=== PATIENT | female | born 1960 | race Caucasian/White ===

== ENCOUNTER → 2016-10-24 | Outpatient (CLI) | payer OTHER ==
--- NOTE | 2016-10-24 12:43 | MAMMOGRAPHY REPORT ---
BILATERAL DIGITAL SCREENING MAMMOGRAM TOMOSYNTHESIS WITH CAD: 10/24/2016 CLINICAL HISTORY: Routine screening. TECHNIQUE: Breast tomosynthesis in addition to standard 2D mammography was performed. Current study was also evaluated with a Computer Aided Detection (CAD) system. COMPARISON: Comparison is made to exams dated: 10/23/2015 mammogram, 10/19/2014 mammogram, 10/17/2013 jimmie mogram, 10/13/2012 mammogram, 10/13/2011 mammogram, and 10/11/2010 mammogram - [facility] . BREAST COMPOSITION: The tissue of both breasts is heterogeneously dense, which may obscure small mas ses. FINDINGS: No suspicious masses, calcifications, or areas of architectural distortion are noted in ei ther breast. There has been no significant interval change compared to prior exams. Scattered bilater al benign-appearing calcifications are not significantly changed. IMPRESSION: ACR BI-RADS CATEGORY 2: BENIGN There is no mammographic evidence of malignancy. A 1 year screening mammogram is recommended. The pa tient will receive written notification of the results. Approximately 10% of breast cancers are not detected with mammography. A negative mammographic report should not delay biopsy if a clinically suggestive mass is present. Yissel Rodrigues M.D. ah/:10/24/2016 09:05:01 Jaw Skinner: José PEACOCK(R)(M), [facility] letter sent: Normal 1/2 BI-RADS Code: ACR BI-RADS Category 2: Benign
== END | disposition home or self-care (01) ==
LOC: C.MAMM 08:09
PROVIDERS: ATTEND Internal Medicine
DX: Z12.31 Encounter for screening mammogram for malignant neoplasm of breast (principal)

== ENCOUNTER 2017-11-12 11:17 | Emergency (ER) | payer OTHER ==
[~2017-11-12] VITALS: Ht 157.5 cm; Wt 62.3 kg
[2017-11-12 11:20] VITALS: Ht 157.5 cm; Wt 62.3 kg
[2017-11-12] MEDS ORDERED: METO-217 PO (12:03)
[2017-11-12] MEDS ORDERED: ATOR10TA82 PO (12:03)
[2017-11-12] MEDS ORDERED: SERT25TA PO (12:03)
[2017-11-12 12:33] VITALS: TEMP 36.6; O2SAT 97
--- NOTE | 2017-11-12 12:34 | DIAGNOSTIC IMAGING REPORT ---
CHEST ONE VIEW PORTABLE CLINICAL HISTORY: cp dyspnea COMPARISON STUDY: No previous studies for comparison. FINDINGS: The bones soft tissues and hemidiaphragms are normal. The cardiomediastinal silhouette is normal. The lungs are clear. The pulmonary vasculature is normal. IMPRESSION: Negative chest. The above report was generated using voice recognition software. It may contain grammatical, syntax or spelling errors. Electronically signed by: Swapnil Blake M.D. 11/12/2017 12:33 PM Dictated Date/Time: 11/12/2017 12:33 PM
[2017-11-12 12:37] LABS: MEAN CELL VOLUME 88.5 fL (80-100); MEAN CORPUSCULAR HEMOGLOBIN 30.1 pg (25-34); MEAN PLATELET VOLUME 10.2 fL (7.4-10.4); PLATELET COUNT 329 K/uL (130-400); RED CELL DISTRIBUTION WIDTH CV 13.4 % (11.5-14.5); RED CELL DISTRIBUTION WIDTH SD 43.3 fL (36.4-46.3)
[2017-11-12 12:42] LABS: PTT PATIENT 28.9 SECONDS (21.0-31.0)
[2017-11-12 13:04] LABS: ALBUMIN 4.2 gm/dl (3.4-5.0); ALKALINE PHOSPHATASE 104 U/L (45-117); ALT/SGPT 43 U/L (12-78); AST/SGOT 22 U/L (15-37); BLOOD UREA NITROGEN 12 mg/dl (7-18); CALCIUM 9.2 mg/dl (8.5-10.1); CARBON DIOXIDE 24 mmol/L (21-32); CKMB < 1.0 ng/ml (0.5-3.6); CREATININE 0.72 mg/dl (0.60-1.20); GLUCOSE 97 mg/dl (70-99); SODIUM 137 mmol/L (136-145); TOTAL PROTEIN 8.1 gm/dl (6.4-8.2)
--- NOTE | 2017-11-12 14:05 | EMERGENCY ROOM VISIT NOTE ---
History Report prepared by Deepak: Maria Alejandra Smith Under the Supervision of: Dr. Bandar Ibrahim D.O. First contact with patient: 12:31 Chief Complaint: CHEST PAIN Stated Complaint: CHEST PAIN, HEAVINESS Nursing Triage Summary: see triage note History of Present Illness The patient is a 57 year old female who presents to the Emergency Room with complaints of persistent chest pain starting yesterday. She was experiencing some heartburn yesterday morning. Last night, she woke up around 2300 with worsened chest pain which lasted for 1 hour. This morning, she woke up with persistent heartburn and a heaviness in her chest. She currently rates her discomfort as a 5/10 in severity. Her pain does not worsen with exertion. Her left arm feels numb and heavy. She called her PCP and was sent to the ED. She has never had these symptoms before. The patient thinks her symptoms are due to anxiety from starting a stressful new job. She denies any SOB, fatigue, or weakness. She has a history of hypertension and high cholesterol. She does not smoke, but does use alcohol socially. Her father had a mitral valve replacement last year, but did not have any heart problems at a younger age. Source of History: patient Onset: yesterday Position: chest Symptom Intensity: 5/10 Quality: burning, other (heavy) Timing: other (persistent) Associated Symptoms: No SOB, No fatigue, No weakness Note: Pt reports left arm numbness and heaviness. Review of Systems See HPI for pertinent positives & negatives. A total of 10 systems reviewed and were otherwise negative. Past Medical & Surgical Medical Problems: (1) High cholesterol (2) Hypertension Family History Hypertension MS (multiple sclerosis) Social History Smoking Status: Never Smoker Alcohol Use: occasionally Marital Status: Housing Status: lives with family Occupation Status: employed Current/Historical Medications Scheduled Atorvastatin (Lipitor), 10 MG PO DAILY Metoprolol Succinate (Toprol Xl), 50 MG PO DAILY Sertraline (Zoloft), 25 MG PO DAILY Allergies Coded Allergies: Doxycycline (Unverified Allergy, Unknown, NAUSEA, 11/12/17) Physical Exam Vital Signs Date Time Temp Pulse Resp B/P (MAP) Pulse Ox O2 Delivery O2 Flow Rate FiO2 11/12/17 13:16 135/85 11/12/17 13:06 71 14 97 11/12/17 13:01 149/94 11/12/17 12:51 68 7 98 11/12/17 12:46 153/95 11/12/17 12:36 73 18 99 11/12/17 12:35 76 11/12/17 12:33 36.6 74 14 162/87 97 Room Air 11/12/17 12:33 97 Room Air 11/12/17 12:31 157/78 11/12/17 11:58 74 14 162/87 97 Room Air 11/12/17 11:20 36.6 86 16 162/79 92 Room Air Physical Exam CONSTITUTIONAL/VITAL SIGNS: Reviewed / noted above. GENERAL: Non-toxic in appearance. INTEGUMENTARY: Warm, dry, and [place]. HEAD: Normocephalic. EYES: without scleral icterus or trauma. ENT/OROPHARYNX: clear and moist. LYMPHADENOPATHY/NECK: Is supple without lymphadenopathy or meningismus. RESPIRATORY: Lungs clear and equal. CARDIOVASCULAR: Regular rate and rhythm. GI/ABDOMEN: Soft and nontender. No organomegaly or pulsatile mass. No rebound or guarding. Normal bowel sounds. EXTREMITIES: Warm and well perfused. BACK: No CVA tenderness. NEUROLOGICAL: Intact without focal deficits. PSYCHIATRIC: normal affect. MUSCULOSKELETAL: Normally developed with good muscle tone. Medical Decision & Procedures ER Provider Diagnostic Interpretation: X ray results and stated below per my interpretation and radiology interpretation. CHEST ONE VIEW PORTABLE CLINICAL HISTORY: cp dyspnea COMPARISON STUDY: No previous studies for comparison. FINDINGS: The bones soft tissues and hemidiaphragms are normal. The cardiomediastinal silhouette is normal. The lungs are clear. The pulmonary vasculature is normal. IMPRESSION: Negative chest. The above report was generated using voice recognition software. It may contain grammatical, syntax or spelling errors. Electronically signed by: Swapnil Blake M.D. 11/12/2017 12:33 PM Dictated Date/Time: 11/12/2017 12:33 PM Laboratory Results 11/12/17 11:30 11/12/17 11:30 Test 11/12/17 11:30 11/12/17 12:26 Red Blood Count 5.31 M/uL (4.2-5.4) Mean Corpuscular Volume 88.5 fL (80-100) Mean Corpuscular Hemoglobin 30.1 pg (25-34) Mean Corpuscular Hemoglobin Concent 34.0 g/dl (32-36) RDW Standard Deviation 43.3 fL (36.4-46.3) RDW Coefficient of Variation 13.4 % (11.5-14.5) Mean Platelet Volume 10.2 fL (7.4-10.4) Prothrombin Time 10.6 SECONDS (9.0-12.0) Prothromb Time International Ratio 1.0 (0.9-1.1) Activated Partial Thromboplast Time 28.9 SECONDS (21.0-31.0) Partial Thromboplastin Ratio 1.1 Anion Gap 7.0 mmol/L (3-11) Est Creatinine Clear Calc Drug Dose 76.6 ml/min Estimated GFR () 109.3 Estimated GFR (Non- 94.3 BUN/Creatinine Ratio 16.1 (10-20) Calcium Level 9.2 mg/dl (8.5-10.1) Total Bilirubin 0.6 mg/dl (0.2-1) Aspartate Amino Transf (AST/SGOT) 22 U/L (15-37) Alanine Aminotransferase (ALT/SGPT) 43 U/L (12-78) Alkaline Phosphatase 104 U/L (45-117) Total Creatine Kinase 51 U/L (26-192) Creatine Kinase MB < 1.0 ng/ml (0.5-3.6) Creatine Kinase MB Ratio (0-3.0) Total Protein 8.1 gm/dl (6.4-8.2) Albumin 4.2 gm/dl (3.4-5.0) Globulin 3.9 gm/dl (2.5-4.0) Albumin/Globulin Ratio 1.1 (0.9-2) Chemistry Specimen Hemolysis Bedside Troponin I 0.040 ng/ml (0-0.045) Laboratory results as stated above per my review. ECG Per My Interpretation Indication: chest pain Rate (beats per minute): 72 Rhythm: normal sinus Findings: no ectopy, other (no ST elevation) ED Course 1233: Previous medical records were reviewed. The patient was evaluated in room B10. A complete history and physical examination was performed. 1356: On reevaluation, the patient is resting comfortably. I discussed the results and findings with the patient. She verbalized agreement of the treatment plan. She was discharged home. Medical Decision Differentials considered include acute myocardial infarction, acute coronary syndrome, myocarditis, pericarditis, pericardial effusions /tamponade, esophageal perforation, thoracic aortic dissection, pulmonary embolism, pneumonia, pneumothorax, pancreatitis, shingles, acute cholecystitis, and perforated abdominal viscus. This is a 57-year-old who presents to the ED with a chief complaint of heartburn. The patient states that yesterday morning she had a little heartburn that resolved and then she had again last night for about an hour. She states that she had at this morning and decided to come to the ED for evaluation. Her symptoms were little different this morning than they were last night and yesterday morning. She reports a heaviness type sensation and some heaviness in her left arm that started overnight. She does have a history of hypertension and high cholesterol. She is on medications for these. Her initial blood pressure was elevated 162/79. EKG did not show any ischemic changes and revealed a normal sinus rhythm. Chest x-ray did not show acute process, CBC was normal, troponin was negative, complete metabolic panel was normal. The patient was told the results of the test. She was offered observation for further cardiac evaluation but declined. She will return if symptoms worsen or she develops any new symptoms that are concerning to her. Otherwise she will follow with her PCP. She does have an appointment for next Thursday. Medication Reconcilliation Current Medication List: was personally reviewed by me Blood Pressure Screening Patient's blood pressure: Elevated blood pressure Blood pressure disposition: Referred to PCP Impression Primary Impression: Substernal precordial chest pain Scribe Attestation The scribe's documentation has been prepared under my direction and personally reviewed by me in its entirety. I confirm that the note above accurately reflects all work, treatment, procedures, and medical decision making performed by me. Departure Information Dispostion Home / Self-Care Referrals Lluvia Todd M.D. (PCP) Patient Instructions Chest Pain - [facility], [facility] Additional Instructions Follow-up with your doctor for further care and evaluation in 1-5 days. Return to the emergency department for worsening or new symptoms or any concerns. You have been examined and treated today on an emergency basis only. This is not a substitute for, or an effort to provide, complete comprehensive medical care. It is impossible to recognize and treat all injuries or illnesses in a single emergency department visit. It is therefore important that you follow up closely with your doctor. Call as soon as possible for an appointment.
[2017-11-12 14:45] VITALS: BP 148/88; PULSE 71; O2SAT 99
== END 2017-11-12 14:45 | disposition home or self-care (01) ==
LOC: C.EDB 11:18
DX: R07.2 Precordial pain (principal); I10 Essential (primary) hypertension; E78.00 Pure hypercholesterolemia, unspecified; Z82.49 Family history of ischemic heart disease and other diseases of the circulatory system; Z88.1 Allergy status to other antibiotic agents